=== PATIENT | male | born 1960 | race Caucasian/White ===

== ENCOUNTER 2017-12-23 12:04 | Emergency (ER) | payer OTHER ==
--- NOTE | 2017-12-23 12:27 | ED Physician Documentation ---
PD HPI ABD PAIN - Stated complaint Stated Complaint: SIDE PX - Chief complaint Chief Complaint: Abd Pain - History obtained from History obtained from: Patient - History of Present Illness Timing - onset: How many weeks ago (1) Timing - duration: Weeks (1) Timing - details: Abrupt onset, Still present, Waxing and waning Quality: Aching, Sharp, Pain Location: RLQ Radiation: Right flank Improved by: No: Eating, Vomiting Worsened by: No: Eating, Moving, Breathing, Position Associated symptoms: Nausea, Hematuria, Loss of appetite. No: Fever, Vomiting, Diarrhea, Dysuria, Chest pain Similar symptoms before: Diagnosis (remote kidney stone about 30 years ago. Now current one the past week.) Recently seen: Emergency Dept (a week ago, seen in ER with UA, labs, and US showing kidney stone. Given Rx for NSAID, Flomax, Zofran, and Percocet. Has had persistent pain since and worse again since last night.) Review of Systems Constitutional: denies: Fever, Chills Nose: denies: Rhinorrhea / runny nose, Congestion Throat: denies: Sore throat Cardiac: denies: Chest pain / pressure, Palpitations Respiratory: denies: Cough GI: reports: Abdominal Pain, Nausea. denies: Vomiting, Constipation, Diarrhea : reports: Hematuria. denies: Dysuria, Frequency Skin: denies: Rash, Lesions PD PAST MEDICAL HISTORY - Past Medical History Cardiovascular: None Respiratory: None Endocrine/Autoimmune: None GI: None : None HEENT: None Psych: None, Depression, Anxiety Musculoskeletal: Osteoarthritis Derm: None - Past Surgical History Ortho: ACL reconstruction - Present Medications Home Medications: Ambulatory Orders Medication Instructions Recorded Confirmed Bupropion HCl [Wellbutrin] 100 mg PO DAILY 04/21/16 12/23/17 Mirtazapine [Remeron] 30 mg PO DAILY 04/21/16 12/23/17 Aspirin [Aspir-Low] 81 mg ORAL DAILY 04/24/16 12/23/17 Dexamethasone [Decadron] 4 mg PO DAILY #5 tablet 12/23/17 Losartan [Cozaar] DAILY 12/23/17 Oxycodone HCl/Acetaminophen 1 each PO Q6H PRN #20 tablet 12/23/17 [Percocet 5-325 mg Tablet] - Allergies Allergies/Adverse Reactions: Allergies Allergy/AdvReac Type Severity Reaction Status Date / Time No Known Drug Allergies Allergy Verified 04/21/16 13:18 PD ED PE NORMAL - Vitals Vital signs reviewed: Yes - General General: Alert and oriented X 3, No acute distress, Well developed/nourished - HEENT HEENT: Moist mucous membranes, Pharynx benign - Neck Neck: Supple, no meningeal sign, No adenopathy - Cardiac Cardiac: RRR, No murmur - Respiratory Respiratory: Clear bilaterally - Abdomen Abdomen: Normal bowel sounds, Soft, Non distended, No organomegaly, Other (mild tenderness without guarding right lower. ) - Male Male : Other (no inguinal hernia nor tenderness; scrotum normal and testicle not unusually tender. ) - Rectal Rectal: Deferred - Back Back: No spinal TTP, Other (some right CVA tender. ) - Derm Derm: Normal color, Warm and dry, No rash - Neuro Neuro: Alert and oriented X 3, No motor deficit, Normal speech Results - Vitals Vitals: Vital Signs - 24 hr 12/23/17 12/23/17 12/23/17 12:09 14:03 14:31 Temperature 36.6 C Heart Rate 68 54 L 61 Respiratory 18 12 16 Rate Blood Pressure 149/85 H 146/90 H 140/98 H O2 Saturation 99 97 97 12/23/17 16:09 Temperature 36.6 C Heart Rate 70 Respiratory 14 Rate Blood Pressure 138/98 H O2 Saturation 100 Oxygen O2 Source Room air - Labs Labs: Laboratory Tests 12/23/17 12/23/17 12/23/17 12:40 12:40 12:40 WBC 7.0 RBC 4.16 L Hgb 13.5 L Hct 39.4 L MCV 94.6 H MCH 32.3 H MCHC 34.2 RDW 12.8 Plt Count 187 MPV 9.1 Neut # 4.8 Lymph # 1.1 L Whitley # 0.8 Eos # 0.3 Baso # 0.0 Absolute Nucleated RBC 0.00 Nucleated RBC % 0.0 Sodium 136 Potassium 4.1 Chloride 100 L Carbon Dioxide 28 Anion Gap 8.0 BUN 25 H Creatinine 1.7 H Estimated GFR (MDRD) 42 L Glucose 103 H Calcium 8.5 Total Bilirubin 0.8 AST 41 ALT 59 Alkaline Phosphatase 59 Total Protein 6.5 L Albumin 3.6 Globulin 2.9 Albumin/Globulin Ratio 1.2 Lipase 20 L Urine Color YELLOW Urine Clarity CLEAR Urine pH 6.5 Ur Specific Datto 1.020 Urine Protein NEGATIVE Urine Glucose (UA) NEGATIVE Urine Ketones NEGATIVE Urine Occult Blood MODERATE H Urine Nitrite NEGATIVE Urine Bilirubin NEGATIVE Urine Urobilinogen 1 (NORMAL) Ur Leukocyte Esterase NEGATIVE Urine RBC 6-10 H Urine WBC 0-3 Ur Squamous Epith Cells RARE Squamous Urine Bacteria None Seen Ur Microscopic Review INDICATED Urine Culture Comments NOT INDICATED - Rads (name of study) KUB CT Radiology: Prelim report reviewed (see Rad report), EMP read contemporaneously PD MEDICAL DECISION MAKING - ED course Complexity details: reviewed results (has 5-6 mm stone still at UVJ. He is going on trip for a week, starting in AM. Given Rx for meds. He had not been taking the Flomax regularly, so encouraged to do so and will add Decadron, to see if helps. ), re-evaluated patient (feeling much better with meds. Declined repeat dilaudid as pain went about away with first go of meds and lido. ), considered differential, d/w patient, other (Longer ED stay due to wait for imaging. ) Departure - Departure Disposition: 01 Home, Self Care Clinical Impression: Right sided abdominal pain, Ureterolithiasis Condition: Stable Record reviewed to determine appropriate education?: Yes Instructions: ED Stone Renal W Colic Follow-Up: Aki Smith MD [Primary Care Provider] - [facility] [Provider Group] Prescriptions: Dexamethasone [Decadron] 4 mg PO DAILY #5 tablet Oxycodone HCl/Acetaminophen [Percocet 5-325 mg Tablet] 1 each PO Q6H PRN #20 tablet PRN Reason: Pain Comments: Drink lots of fluids. Continue the Aleve as an anti-inflammatory 2-3 times a day. Continue the tamsulosin to reduce ureter spasming and try to promote passage. Add Decadron steroid anti-inflammatory to also help promote passage by reducing inflammation. Use Percocet if needed for pain. Follow-up with urology if still not improved over the next few days to week or so. You could call and make an appointment for your return from your trip Discharge Date/Time: 12/23/17 16:42
[2017-12-23 12:49] LABS: BILIRUBIN,URINE NEGATIVE (NEGATIVE); GLUCOSE, URINE (UA) NEGATIVE (NEGATIVE); KETONES,URINE (UA) NEGATIVE (NEGATIVE); LEUKOCYTE ESTERASE, URINE NEGATIVE (NEGATIVE); NITRITE,URINE NEGATIVE (NEGATIVE); OCCULT BLOOD,URINE MODERATE (NEGATIVE); PH,URINE 6.5 PH (5.0-7.5); PROTEIN,URINE NEGATIVE (NEGATIVE); UROBILINOGEN,URINE 1 (NORMAL) E.U./dL (NORMAL)
[2017-12-23 12:54] LABS: CLARITY,URINE CLEAR (CLEAR)
[2017-12-23] MEDS ORDERED: DEXAMETHASONE 10 MG/ML VIAL IVP STA (12:55)
[2017-12-23] MEDS ORDERED: HYDROmorphone 1 MG/ML SYRINGE IVP STA ×2 (12:55→13:43)
[2017-12-23] MEDS ORDERED: SODIUM CHLORIDE 0.9% 1,000 ML IV ONE (12:55)
[2017-12-23] MEDS ORDERED: KETOROLAC 30 MG/ML VIAL IVP STA (12:55)
[2017-12-23] MEDS ORDERED: ONDANSETRON 4 MG/2 ML VIAL IVP STA (12:55)
[2017-12-23 12:58] LABS: BASOPHILS % (AUTO) 0.7 %; EOSINOPHILS # (AUTO) 0.3 10^3/uL (0.0-0.7); EOSINOPHILS % (AUTO) 3.6 %; HGB - HEMOGLOBIN 13.5 g/dL (14.0-18.0); LYMPHOCYTES # (AUTO) 1.1 10^3/uL (1.5-3.5); LYMPHOCYTES % (AUTO) 15.4 %; MEAN CORPUSCULAR HEMOGLOBIN 32.3 pg (27.0-31.0); MEAN CORPUSCULAR HGB CONC 34.2 g/dL (32.0-36.0); MEAN CORPUSCULAR VOLUME 94.6 fL (80.0-94.0); MEAN PLATELET VOLUME 9.1 fL (7.4-11.4); MONOCYTES # (AUTO) 0.8 10^3/uL (0.0-1.0); MONOCYTES % (AUTO) 10.8 %; NEUTROPHILS # (AUTO) 4.8 10^3/uL (1.5-6.6); NEUTROPHILS % (AUTO) 69.5 %; PLT - PLATELET COUNT 187 10^3/uL (130-450); RED BLOOD COUNT 4.16 10^6/uL (4.70-6.10); RED CELL DISTRIBUTION WIDTH 12.8 % (12.0-15.0)
[2017-12-23 13:03] LABS: SQUAMOUS EPITHELIAL CELL,UR RARE Squamous (<= Few)
[2017-12-23 13:04] LABS: BACTERIA,URINE None Seen /HPF (None Seen)
[2017-12-23 13:08] LABS: ALBUMIN 3.6 g/dL (3.2-5.5); ALBUMIN/GLOBULIN RATIO 1.2 (1.0-2.2); BILIRUBIN,TOTAL 0.8 mg/dL (0.2-1.0); CALCIUM 8.5 mg/dL (8.5-10.3); CREATININE 1.7 mg/dL (0.6-1.2); TOTAL PROTEIN 6.5 g/dL (6.7-8.2)
[2017-12-23] MEDS ORDERED: LIDOCAINE-MPF 2% 7 ML in SODIUM CHLORIDE 0.9% 50 ML IV STA (13:42)
[2017-12-23] MEDS ORDERED: LIDOCAINE-MPF 2% 5 ML VIAL ONE (14:25)
--- NOTE | 2017-12-23 15:56 | CT Preliminary Report ---
Exam: CT KUB IMPRESSION: 1. Obstructing right UVJ 6.3 x 3.5 mm calculus with a probable slighty more proximal distal right ure teral 4.5 x 3.5 mm calculus in the distal right ureter. Moderate right hydronephrosis and right perin ephric edema. 2. Nonobstructing left renal calculi. 6.6 mm calculus present within the left renal pelvis. 3. Normal appendix. No bowel obstruction per no diverticulitis. 4. Partially exophytic low-attenuation 17 mm lesion arising from the posterior mid right kidney with a likely marginal calcification which has increased in size compared to 12/29/2010. Renal ultrasound follow-up recommended for further detail. [facility] SITE ID: [id number]
--- NOTE | 2017-12-23 16:03 | CT Report ---
EXAM: CT ABDOMEN AND PELVIS (CT KUB) EXAM DATE: 12/23/2017 03:39 PM. CLINICAL HISTORY: Right kidney stone. Flank pain. History of kidney stones. COMPARISONS: 12/29/2010. TECHNIQUE: Routine axial helical CT imaging was performed through the abdomen and pelvis without IV c ontrast. Reconstructions: Coronal and sagittal. In accordance with CT protocol optimization, one or more of the following dose reduction techniques w ere utilized for this exam: automated exposure control, adjustment of mA and/or KV based on patient s ize, or use of iterative reconstructive technique. FINDINGS: Lung Bases: Lung bases are clear. Included portions of the heart are unremarkable Right Kidney/Ureter: Right perinephric edema and moderate right hydronephrosis and right ureteral dil atation and right periureteral edema evident to the right UVJ where there is an obstructing 6.3 x 3.5 mm calculus. Slightly more proximally there appears to be another calculus measuring 4.5 x 3.5 mm wi thin the distal right ureter. Multiple calculi are seen, largely within the lower pole of the right k idney. Partly exophytic low attenuation lesion is seen arising from the mid posterior right kidney me asuring 17 mm which has increased in size with a possible marginal calcification. Left Kidney/Ureter: Multiple nonobstructing left renal calculi are seen in the left kidney. Within th e left renal pelvis is a nonobstructing 6.6 x 4.5 mm calculus. Mild left perinephric stranding. No ur eteral dilatation or ureteral calculi are identified. Other Solid Organs: Unenhanced images of the liver, spleen, adrenals and pancreas are unremarkable. Gallbladder/Bile Ducts: Unremarkable. Peritoneal Cavity: Stomach is only mildly distended and unremarkable. No small bowel obstruction. Diane endix is normal. Small to moderate volume of stool is seen in the colon. No diverticulitis. No enlarg ed retroperitoneal or mesenteric lymph nodes. Small fatty umbilical hernia. No free air. Pelvic Organs: Right UVJ calculus. No other bladder calculi. Prostate calcifications. No urethral hermilo culi are identified. No pelvic adenopathy. No pelvic free fluid. Vasculature: Unremarkable. Other: Degenerative changes of the lower thoracic and lower lumbar spine. Grade 1 anterolisthesis of L4-L5 due to L5 pars interarticularis defects. Lumbar facet arthropathy. Degenerative changes of both hip joints. IMPRESSION: 1. Obstructing right UVJ 6.3 x 3.5 mm calculus with a probable slighty more proximal distal right ure teral 4.5 x 3.5 mm calculus in the distal right ureter. Moderate right hydronephrosis and right perin ephric edema. 2. Nonobstructing left renal calculi. 6.6 mm calculus present within the left renal pelvis. 3. Normal appendix. No bowel obstruction. No diverticulitis. 4. Partly exophytic low-attenuation 17 mm lesion arising from the posterior mid right kidney with a l ikely marginal calcification which has increased in size compared to 12/29/2010. Renal ultrasound fol low-up recommended for further detail. [facility] Referring Provider Line: [phone] SITE ID: [id number]
[2017-12-23 16:10] VITALS: BP 138/98
== END 2017-12-23 16:42 | disposition home or self-care (01) ==
LOC: ED 12:04
DX: N20.1 Calculus of ureter (principal)
CPT/HCPCS: 36415; 74176; 80053; 81001; 83690; 85025; 96361; 96374; 96375; 99283; 99284; J1170; 81003; 87086

== ENCOUNTER 2019-06-12 08:58 | Outpatient (CLI) | payer OTHER ==
--- NOTE | 2019-06-12 11:21 | CT Report ---
Reason: FAMILY HX OF CORONARY HEART DISEASE Procedure Date: 06/12/2019 Accession Number: [id number] / [id number] Procedure: CT - Calcium Score CPT Code: 13501 FULL RESULT: EXAM: CALCIUM SCORE EXAM DATE: 06/12/2019 09:22 AM. HISTORY: FAMILY HISTORY OF CORONARY HEART DISEASE. COMPARISON: None. TECHNIQUE: Axial sections were obtained through the heart. In accordance with CT protocol optimization, one or more of the following dose reduction techniques were utilized for this exam: automated exposure control, adjustment of mA and/or KV based on patient size, or use of iterative reconstructive technique. FINDINGS: CALCIUM SCORE: The LMA equals 0. The LAD equals 0. The left circumflex equals 0. The RCA equals 0. The total calcium score is 0. LUNGS AND MEDIASTINUM: Heart size is normal. Trace pericardial effusion. Ascending aorta on the axial images measures 4 cm. Descending thoracic aorta on the axial images measures 2.9 cm. Mid main pulmonary artery measures 2.5 cm. No enlarged mediastinal or hilar lymph nodes are identified. No endobronchial obstruction. Bilateral lower lung, right middle lobe and lingular scar/atelectasis. Included portions of the upper abdomen are unremarkable. Mild degenerative changes of the visualized thoracic spine. IMPRESSION: Calcium score of 0. Mildly prominent ascending aorta measuring 4 cm. [facility]
== END 2019-06-12 08:59 | disposition home or self-care (01) ==
LOC: DI 08:58
PROVIDERS: ATTEND Family Medicine
DX: Z82.49 Family history of ischemic heart disease and other diseases of the circulatory system (principal)
CPT/HCPCS: 75571

== ENCOUNTER 2021-01-24 14:17 | Outpatient (CLI) | payer OTHER ==
[2021-01-30 22:26] VITALS: BP 170/117
--- NOTE | 2021-01-30 22:27 | SLEEP CARE CONSULTATION ---
Information from patient questionnaire entered by Ga Woods. I have reviewed and concur with the information entered by Ga Woods. This document represents the service I personally performed and the decisions made by me, Lorenzo Sultana MD, [facility]. History of Present Illness Service Date and Time: 01/24/2021 1417 Reason for Visit: New patient Chief Complaint: reports: Snoring, Observed pauses in breathing, Frequent awakenings at night Date of Onset: 5 + years Usual bedtime: 10:30 PM Time it takes to fall asleep: 30 min Snores at night: Yes Observed to quit breathing while asleep: Yes Sleeps alone due to snoring: No Number of times waking at night: 3 Reasons for waking at night: reports: Snoring Toss, Turn, or Twitch while sleeping: Yes (sometimes) Recalls having dreams: Yes Usually gets out of bed at: 6 AM Feels refreshed in the morning: Yes Morning headache: No Sleepy or fatigued during the day: No Ever fallen asleep while driving: No Takes day naps: No Dreams during day naps: No Prior sleep studies: No Additional HPI information: I had the pleasure of seeing Mr. Branch today regarding the possibility of him having a sleep disorder. As you know, he is a 60 year old gentleman who complains of loud snore, observed apneas, and frequent awakenings. The patient tells me that he normally goes to bed around 10:30 pm, and it takes him approximately 30 minutes to fall asleep. His can still sleep in the same bed. He can recall waking up on the average of 3 times during the night. Most of the time he wakes up because of his own snoring, but not choking, or having to gasp for air. There is a lot of tossing and turning in his sleep. No somniloquy (sleep talking) or somnambulism (sleep walking). Generally he can recall having dreams. In the morning he usually gets up out of the bed around 6 a.m. feeling refreshed and rested. He usually does not have a morning headache. During the day he does not feel sleepy or fatigued. His score on [place] Sleepiness Scale is 4 out of 24. He never has fallen asleep while driving nor has had any accident due to sleepiness. He usually does not take naps during the day. He denies having impaired concentration during the day. 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 Patient is and lives in [place]. Have you smoked in the past 12 months: No Alcohol use: Yes Alcohol amount and frequency: Glass of wine with dinner Caffeine use: Yes Caffeine amount and frequency: 1 cup of tea in morning Family History Family history of sleep disordered breathing: Yes (Brother - 58 years old) Allergies and Home Medications Drug allergies reviewed: Yes Home medication list reviewed: Yes Review of Systems Weight gain over past 5 years: 15 Cardiovascular: denies: high blood pressure, palpitations, chest pain, irregular heart rate or pulse, leg or foot swelling, have to sleep sitting up, other Respiratory: denies: shortness of breath, wheeze, sputum production, chronic cough, other Gastrointestinal: denies: heartburn, difficulty swallowing, nausea, vomitting, diarrhea, abdominal pain, other Urinary: denies: incontinence, frequency, urgency, impotence, other Psychiatric: reports: mood disorder (managed by medicine) Ear/Nose/Throat: reports: wisdom teeth removed Endocrine: denies: thyroid disease, history of goiter, sluggishness, too hot or cold, excessive thirst, increased appetite, increased urination, unexplained weakness, other Musculoskeletal: denies: joint pain, neck pain, back pain, joint swelling, muscle pain or cramping, mobility problems, other Physical Exam Vital signs obtained and entered by: Dr. Sultana Blood Pressure: 170/117 Cuff size: regular Heart Rate: 83 O2 Saturation: 95 Height: 6 ft Weight: 185 lb Body Mass Index: 25.0 BMI Classification: Overweight Neck circumference: 17.5 Mood/affect: normal HEENT: No craniofacial malformation Nostrils: patent to airflow Turbinates: normal Septum: midline Mouth and throat: narrow oropharynx Hard palate: normal Uvula: normal Uvula visualization: 50% Mallampati Class II Tongue: normal in size Tonsils: small Chin and jaw: normal size and position Impression and Plan IMPRESSION: 1. Obstructive Sleep Apnea-Hypopnea Syndrome, as suggested by history of loud and irregular snoring, observed cessation of breath while asleep, and frequent awakenings during the night. Narrow oropharynx and obesity are common predisposing factors for obstructive sleep apnea-hypopnea syndrome. Untreated obstructive sleep apnea can also cause hypertension. I will order a home sleep apnea test (HSAT). Plan: 1. Schedule a home sleep apnea test (HSAT). 2. Avoid long distance driving or when feeling sleepy. 3. Avoid alcohol, sedative and muscle relaxant around bedtime. 4. Attempt to lose weight. Visit Type: In Office Time Spent with Patient (minutes): 15 Provider Statement: I spent 100% of the Face to Face Visit with the patient with greater than 50% spent counseling the patient and coordination of care.
== END 2021-01-24 14:18 | disposition home or self-care (01) ==
LOC: SC 14:17
PROVIDERS: ATTEND Internal Medicine Pulmonary Disease
DX: R06.81 Apnea, not elsewhere classified (principal); G47.8 Other sleep disorders; R06.83 Snoring; E66.3 Overweight; Z68.25 Body mass index [BMI] 25.0-25.9, adult
CPT/HCPCS: 99202; 99212

== ENCOUNTER 2021-02-10 15:07 | Outpatient (CLI) | payer OTHER | END 2021-02-10 15:08 | disposition home or self-care (01) | LOC: SC 15:07 | PROVIDERS: ATTEND Internal Medicine Pulmonary Disease | DX: G47.33 Obstructive sleep apnea (adult) (pediatric) (principal) | CPT/HCPCS: 95806 ==

== ENCOUNTER 2021-02-16 16:08 | Outpatient (CLI) | payer OTHER ==
--- NOTE | 2021-02-16 16:45 | SLEEP CARE CONSULTATION ---
Information from patient questionnaire entered by Ga Woods. I have reviewed and concur with the information entered by Ga Woods. This document represents the service I personally performed and the decisions made by me, Luh Mccarty ARNP. History of Present Illness Service Date and Time: 02/16/2021 1608 Initial [place] Sleepiness Scale score: 4 (in 2020) Current [place] Sleepiness Scale score: 4 Additional HPI information: LINDA VIDAL returns for follow up and results of the recently performed home sleep study. I explained the pathophysiology behind obstructive sleep apnea. We then spent quite a bit of time discussing different treatment options. For mild obstructive sleep apnea, surgery and oral appliance are alternatives to nasal CPAP therapy but in moderate or severe cases, nasal CPAP is the most effective and reliable treatment. Because apnea is primarily in supine position, then positional management therapy could be effective. Methods discussed such as positioning with pillows, using a T-shirt with tennis balls in the back, and shown commercial products that have a pillow format on back to prevent supine sleep. I reviewed the impact of weight changes on sleep apnea and strongly recommended losing weight. After some discussion, the patient opted to go with the nasal CPAP therapy. Nasal autoCPAP set at 4-15 cmH20 will be ordered with rationale explained. A manual titration study will be ordered if unable to find optimal pressure with office adjustments. I explained how CPAP machine works with sample devices Resp[employer]ics Dreamstation and [employer] [id number] and what to expect when using the machine. Using CPAP every night in order to get used to it was emphasized. Patient advised to put CPAP mask on before getting into bed so as not to fall asleep without CPAP. To assist acclimation to CPAP use, it could also be used for a short time during day while reading or watching TV. The patient was instructed to call the CPAP supplier to discuss any mechanical problem that may occur. If the mask given is uncomfortable or is difficult to keep on through the night even with adjustment, contact the CPAP supplier as many will replace with another mask style if notified before 30 days. If snoring or perceives is not getting enough air or too much air from the machine, notify this office. [facility] patient education PAP tips reviewed and given to patient. Patient counseled not drink alcohol less than 4 hours before bedtime as it can increase snoring and apnea. Patient was cautioned about risks of drowsy driving until sleepiness symptoms resolve. Sleep Study - Results Type of Sleep Study: Home sleep study Prior sleep studies: No Polysomnography/Home Sleep Study results: Physician Impression: The quality of the study is good. The length of the study is adequate (> 240 minutes). Please also see the tabulated and graphic data. 1. Obstructive Sleep Apnea-Hypopnea (ICD-10 G47.33), mild, with an AHI of 14.9 /hr and akosua SaO2 of 80%. During the study, the patient had 90 apneas (86 obstructive, 3 central, 1 mixed) and 24 hypopneas. The longest episode lasted 110.0 seconds. The respiratory events occurred more frequently during supine sleep (supine AHI was 63.5 and non-supine, 10.79). 2. Hypoxemia (ICD-10 R09.02), mild, with the lowest oxygen saturation of 80 % and 14.7 minutes with SaO2 under 90%. Baseline oxygen saturation was normal (Average oxygen saturation was 93%). Allergies and Home Medications Home medication list reviewed: Yes (no new meds) Review of Systems Review of systems same as previous: Yes (no changes) Physical Exam Heart Rate: 88 O2 Saturation: 96 Height: 6 ft Weight: 226 lb Body Mass Index: 30.6 BMI Classification: Obese Impression and Plan 1. Obstructive Sleep Apnea-Hypopnea Syndrome, mild, with lowest oxygen saturation of 80%. Obviously this is the cause of the patients symptoms of unrefreshed sleep, and excessive daytime sleepiness. Positive pressure therapy could benefit hypertension and mood disorders. As mentioned above, the patient will be started on nasal autoCPAP therapy with pressure set at 4-15 cmH2O. A manual titration study will be completed if unable to find optimal treatment pressure with office adjustments. Compliance guidelines also reviewed. A copy of compliance guidelines will be given for reference at check out. Because the apnea is more severe supine, I instructed to avoid sleeping supine using pillow positioning until able to start CPAP use. * Nasal auto CPAP therapy, pressure at 4-15 cm H2O. * Attempt to lose weight. * Avoid alcohol consumption near bedtime. * Avoid supine sleep until using CPAP. * The patient is again cautioned about driving until sleepiness completely resolves. * Return one month after CPAP obtained. I will assess response to therapy and compliance at that time. Counseling Topics: Weight loss health impact Visit Type: In Office Time Spent with Patient (minutes): 23 Provider Statement: I spent 100% of the Face to Face Visit with the patient with greater than 50% spent counseling the patient and coordination of care.
== END 2021-02-16 16:09 | disposition home or self-care (01) ==
LOC: SC 16:08
PROVIDERS: ATTEND Nurse Practitioner Family
DX: G47.33 Obstructive sleep apnea (adult) (pediatric) (principal); E66.9 Obesity, unspecified; Z68.30 Body mass index [BMI] 30.0-30.9, adult
CPT/HCPCS: 99212; 99213

== ENCOUNTER 2021-06-28 11:39 | Outpatient (CLI) | payer OTHER ==
--- NOTE | 2021-06-28 12:02 | SLEEP CARE CONSULTATION ---
Information from patient questionnaire entered by Nola Laird. I have reviewed and concur with the information entered by Nola Laird. This document represents the service I personally performed and the decisions made by , Luh Mccarty ARNP. History of Present Illness Service Date and Time: 06/28/2021 1139 Previous diagnosis: Mild, Obstructive Sleep Apnea-Hypopnea Syndrome AHI: 14.9 (in 2020) Reason for follow up: first compliance Equipment type: CPAP Equipment obtained from: [employer] (got initial supplies, no issues) Mask style: Nasal Mask brand: Resmed (over the nose) Backup mask available: No (will keep old mask when replaced) Last cushion change: 1 month Prior sleep studies: Yes Year and Where: 2020 - [facility] Type of Sleep Study: Home sleep study HPI additional information: LINDA VIDAL was diagnosed to have mild, AHI 14.9, obstructive sleep apnea- hypopnea syndrome and returns via Telehealth audiovisual visit today for CPAP therapy first compliance follow-up. CPAP Compliance Data - Data Reviewed with Patient Average duration of nightly device use: 6 hr 29 min Compliance rate %: 70 (initial 30 days)(last 30 - 97%) Current pressure setting (cmH2O): 4-15 (median 8.8, avg 12.8, max 13.8) Humidity settin Average residual AHI: 6.1 (initial)(last 30 - 1.8) Central apnea: 1.1 Obstructive apnea: 1.9 Subjective Patient concerns: reports: condensation in mask/hose (one time when travelin). denies: aerophagia, mask discomfort, air blowing in eyes, mask leak noise, nasal congestion, dry mouth, nose, throat, epistaxis, other Observed to snore while using device: No Current pressure setting perceived as: comfortable On therapy, patient: reports: sleeping better, awakening more refreshed, being more awake and alert during the day, more rested overall. denies: drowsiness while driving Initial [place] Sleepiness Scale score: 4 (in 2020) Current [place] Sleepiness Scale score: 2 Allergies and Home Medications Home medication list reviewed: Yes (no changes) Review of Systems Review of systems same as previous: Yes (no changes) Physical Exam Vital signs obtained and entered by: Telehealth visit to reduce exposure during Covid pandemic Height: 6 ft Impression and Plan 1. Obstructive Sleep Apnea-Hypopnea Syndrome, mild, with fair treatment compliance and fair to good apnea control. On CPAP therapy, the patient has better sleep quality and is more rested overall. He feels the pressures used are comfortable. He has turned off the ramp feature on his device. The patients pressure will be changed to autoCPAP 9-14 cmH20. Patient advised to contact me if pressure change is uncomfortable so that it can be adjusted. Goals for apnea control discussed. Patient's apnea severity and rationale for treatment to reduce apnea, improve sleep quality and reduce cardiovascular and cerebrova scular events was reviewed. I also reviewed the benefit of consistent device use of CPAP for hypertension and mood disorders. Patient was encouraged to lose weight for their overall health and to reduce apneas. * Change auto CPAP pressure to 9-14 cmH2O * Notify me if snoring with mask or feeling that the pressure is too much or too little * Attempt to lose weight * Call this office if any problems using CPAP * Return for follow up in 1-2 months, or sooner if concerns arise Counseling Topics: Spare mask, Weight loss health impact Visit Type: In Office Patient Location: Home Location of Provider: Office Patient agrees and consents to this telehealth visit type: Yes Patient agrees to have their insurance billed: Yes Time Spent with Patient (minutes): 17 Provider Statement: I spent 100% of the Face to Face Visit with the patient with greater than 50% spent counseling the patient and coordination of care.
== END 2021-06-28 11:40 | disposition home or self-care (01) ==
LOC: SC 11:39
PROVIDERS: ATTEND Nurse Practitioner Family
DX: G47.33 Obstructive sleep apnea (adult) (pediatric) (principal)

== ENCOUNTER 2021-08-23 10:05 | Outpatient (CLI) | payer OTHER ==
--- NOTE | 2021-08-23 10:24 | SLEEP CARE CONSULTATION ---
Information from patient questionnaire entered by Valentine Crowell. I have reviewed and concur with the information entered by Valentine Crowell. This document represents the service I personally performed and the decisions made by , Luh Mccarty ARNP. History of Present Illness Service Date and Time: 08/23/2021 1005 Previous diagnosis: Mild, Obstructive Sleep Apnea-Hypopnea Syndrome AHI: 14.9 (in 2020) Reason for follow up: other (2 month) Equipment type: CPAP Equipment obtained from: [employer] (getting supplies, no issues) Mask style: Nasal Backup mask available: Yes (other mask) Last cushion change: couple days Prior sleep studies: Yes Year and Where: 2020 - [email or web address] Type of Sleep Study: Home sleep study HPI additional information: LINDA VIDAL was diagnosed to have mild, AHI 14.9, obstructive sleep apnea- hypopnea syndrome and returns via video telehealth visit today for CPAP therapy 2 months follow-up. Sleep Study - Results Type of Sleep Study: Home sleep study Prior sleep studies: Yes Year and Where: 2020 - [email or web address] CPAP Compliance Data - Data Reviewed with Patient Average duration of nightly device use: 7 hours 51 minutes Compliance rate %: 98 Current pressure setting (cmH2O): 9-14 Average residual AHI: 2 Central apnea: 1.5 Obstructive apnea: .1 Hypopnea: .3 Subjective Patient concerns: reports: condensation in mask/hose (occasionally). denies: aerophagia, mask discomfort, air blowing in eyes, mask leak noise, nasal congestion, dry mouth, nose, throat, epistaxis, other Observed to snore while using device: No Current pressure setting perceived as: comfortable On therapy, patient: reports: sleeping better, awakening more refreshed, being more awake and alert during the day, more rested overall. denies: drowsiness wh ile driving Initial [place] Sleepiness Scale score: 4 (in 2020) Current [place] Sleepiness Scale score: 3 Allergies and Home Medications Home medication list reviewed: Yes (no changes) Review of Systems Review of systems same as previous: Yes (no changes) Physical Exam Vital signs obtained and entered by: Telehealth visit to reduce exposure during covid pandemic Height: 6 ft Impression and Plan 1. Obstructive Sleep Apnea-Hypopnea Syndrome, mild, with good treatment compliance and good apnea control. On CPAP therapy, the patient has better sleep quality and is more rested overall. Patient is satisfied with current CPAP therapy. He has good improvement of his overall sleep apnea at current pressure. No pressure change needed today. Patient is very comfortable with h is CPAP and has no issues. He does get occasional condensation in the mask and I discussed with him adjusting his heated hose and/or humidity to reduce condensation. Patient would like to go out for a yearly visit at this point. Patient's apnea severity and rationale for treatment to reduce apnea, improve sleep quality and reduce cardiovascular and cerebrovascular events was reviewed. I also reviewed the benefit of consistent device use of CPAP for hypertension and mood disorders. * Continue auto CPAP pressure at 9-14 cmH2O * Notify me if snoring with mask or feeling that the pressure is too much or too little * Call this office if any problems using CPAP * Return for follow up in 1 year, or sooner if concerns arise Counseling Topics: Spare mask, Weight loss health impact Visit Type: Telehealth Video Video Type: ee Patient Location: Home Location of Provider: Office Patient agrees and consents to this telehealth visit type: Yes Patient agrees to have their insurance billed: Yes Time Spent with Patient (minutes): 18 Provider Statement: I spent 100% of the Telehealth Video Call with the patient with greater than 50% spent counseling the patient and coordination of care.
== END 2021-08-23 10:06 | disposition home or self-care (01) ==
LOC: SC 10:05
PROVIDERS: ATTEND Nurse Practitioner Family
DX: G47.33 Obstructive sleep apnea (adult) (pediatric) (principal)

== ENCOUNTER 2023-01-04 09:11 | Outpatient (CLI) | payer OTHER ==
[2023-01-04 09:54] VITALS: BP 148/96
--- NOTE | 2023-01-04 09:54 | SLEEP CARE CONSULTATION ---
Information from patient questionnaire entered by Ebonie Tuttle. I have reviewed and concur with the information entered by Ebonie Tuttle. This document represents the service I personally performed and the decisions made by me, Luh Mccarty ARNP. History of Present Illness Service Date and Time: 01/04/2023 09 Previous diagnosis: Mild, Obstructive Sleep Apnea-Hypopnea Syndrome AHI: 14.9 (in 2020) Reason for follow up: annual (LAST SEEN 07/2021) Equipment type: CPAP (Resmed Airsense 10 s/u 01/2021) Equipment obtained from: [employer] (getting supplies, no issues) Mask style: Nasal Mask brand: Resmed (Airfit N20) Backup mask available: No (will keep old mask when replaced) Last cushion change: 1 year ago Prior sleep studies: Yes Year and Where: 2020 - [facility] Type of Sleep Study: Home sleep study HPI additional information: LINDA VIDAL was diagnosed to have mild, AHI 14.9, obstructive sleep apnea- hypopnea syndrome and returned today for CPAP therapy annual follow-up. Sleep Study - Results Type of Sleep Study: Home sleep study Prior sleep studies: Yes Year and Where: 2020 - [facility] CPAP Compliance Data - Data Reviewed with Patient Average duration of nightly device use: 8 HRS 1 MIN Compliance rate %: 97 (07/07/22-01/02/23; 177/180 days used) Current pressure setting (cmH2O): 9-14 Average residual AHI: 0.8 Central apnea: 0.4 Obstructive apnea: 0.1 Subjective Patient concerns: reports: other (velcro on face mask doesn't keep mask on). denies: aerophagia, mask discomfort, air blowing in eyes, mask leak noise, condensation in mask/hose, nasal congestion, dry mouth, nose, throat, epistaxis Observed to snore while using device: No Current pressure setting perceived as: comfortable On therapy, patient: reports: sleeping better, awakening more refreshed, being more awake and alert during the day, more rested overall. denies: drowsiness while driving Initial [place] Sleepiness Scale score: 4 (in 2020) Current [place] Sleepiness Scale score: 3 (01/04/23) Allergies and Home Medications Known drug allergies: No Drug allergies reviewed: Yes Home medication list reviewed: Yes (no changes) Review of Systems Review of systems same as previous: Yes (no changes) Physical Exam Vital signs obtained and entered by: EBONIE Willis MA Blood Pressure: 148/96 (LEFT ARM) Cuff size: regular Heart Rate: 66 O2 Saturation: 96 Height: 6 ft Weight: 226 lb 3.2 oz Body Mass Index: 30.7 BMI Classification: Obese Impression and Plan 1. Obstructive Sleep Apnea-Hypopnea Syndrome, mild, with good treatment compliance and good apnea control. On CPAP therapy, the patient has better sleep quality and is more rested overall. Patient has not been getting regular supplies to change out his headgear and nasal cushion. He has had care so stretched out that it is hard to keep it on his head at night. He comes in mainly to get referral for more supplies to his DME. He is using a ResMed N20 but would like to try the [employer] DreamWisp because it has the hose connection at the top of the head. I will add this to his supply prescription. Patient has significant improvement of their sleep apnea and is satisfied with current CPAP therapy. Patient denies problems with oral dryness, nasal congestion, epistaxis, skin irritation or aerophagia. Patient's apnea severity and rationale for treatment to reduce apnea, improve sleep quality and reduce cardiovascular and cerebrovascular events was reviewed. I also reviewed the benefit of consistent device use of CPAP for hypertension and mood disorders. 2. Obesity, unspecified. Currently patients BMI is 30.7. Obesity increases the risk of apnea, CPAP pressure requirements and overall health risks especially cardiovascular and diabetes. Thus patient is advised to lose weight. * Continue auto CPAP pressure at 9-14 cmH2O * Patient to try a [employer] DreamWisp mask, size medium * Update supplies * Notify me if snoring with mask or feeling that the pressure is too much or too little * Attempt to lose weight * Call this office if any problems using CPAP * Return for follow up in 1 year, or sooner if concerns arise Counseling Topics: Spare mask, Weight loss health impact Visit Type: In Office Time Spent with Patient (minutes): 22 Provider Statement: I spent 100% of the Face to Face Visit with the patient with greater than 50% spent counseling the patient and coordination of care.
== END 2023-01-04 09:12 | disposition home or self-care (01) ==
LOC: SC 09:11
PROVIDERS: ATTEND Nurse Practitioner Family
DX: G47.33 Obstructive sleep apnea (adult) (pediatric) (principal); E66.9 Obesity, unspecified; Z68.30 Body mass index [BMI] 30.0-30.9, adult
CPT/HCPCS: 99212; 99213

== ENCOUNTER 2024-04-22 13:34 | Outpatient (CLI) | payer OTHER ==
--- NOTE | 2024-04-22 14:08 | Sleep Patient Instructions ---
Sleep Center Visit Summary - Patient Visit Information Reason for Visit: Annual follow-up - Patient Instructions Additional Instructions: You will continue with CPAP therapy with pressure set at 9-14 cmH2O. A supply prescription will be updated with your DME. Please follow up with the sleep care office in 1 year. - Clinic Information Contact: [facility] [address] [place] [id number] [email or web address] T: [phone]
--- NOTE | 2024-04-22 14:13 | SLEEP CARE CONSULTATION ---
Information from patient questionnaire entered by Ebonie Tuttle. I have reviewed and concur with the information entered by Ebonie Tuttle. This document represents the service I personally performed and the decisions made by me, Luh Mccarty ARNP. History of Present Illness Service Date and Time: 04/22/2024 1334 Previous diagnosis: Mild, Obstructive Sleep Apnea-Hypopnea Syndrome AHI: 14.9 (in 2020) Reason for follow up: annual (LAST SEEN 12/2022) Equipment type: CPAP (Resmed Airsense 10 s/u 01/2021) Equipment obtained from: [email or web address] (getting supplies, no issues) Mask style: Nasal (over the nose) Mask brand: Respironics (Dreamwisp) Backup mask available: Yes Last cushion change: couple months Prior sleep studies: Yes Year and Where: 2020 - [facility] Type of Sleep Study: Home sleep study HPI additional information: LINDA VIDAL was diagnosed to have mild, AHI 14.9, obstructive sleep apnea- hypopnea syndrome and returned today for CPAP therapy annual follow-up. Sleep Study - Results Type of Sleep Study: Home sleep study Prior sleep studies: Yes Year and Where: 2020 - [facility] CPAP Compliance Data - Data Reviewed with Patient Average duration of nightly device use: 7 HRS 50 MINS Compliance rate %: 100 (04/18/23-04/16/24; 365/365 days used) Current pressure setting (cmH2O): 9-14 Average residual AHI: 0.6 Central apnea: 0.4 Obstructive apnea: 0 Average large leak: 11 L/min Subjective Patient concerns: denies: aerophagia, mask discomfort, air blowing in eyes, mask leak noise, condensation in mask/hose, nasal congestion, dry mouth, nose, throat, epistaxis Observed to snore while using device: No Current pressure setting perceived as: comfortable On therapy, patient: reports: sleeping better, awakening more refreshed, being more awake and alert during the day, more rested overall. denies: drowsiness while driving Initial [place] Sleepiness Scale score: 4 (in 2020) Current [place] Sleepiness Scale score: 5 Allergies and Home Medications Known drug allergies: No Drug allergies reviewed: Yes Home medication list reviewed: Yes (no changes) Allergy and home medication list: Allergies No Known Drug Allergies Allergy (Verified 03/19/24 11:43) Review of Systems Review of systems same as previous: Yes (no changes) Physical Exam Vital signs obtained and entered by: [facility] ROCHA Blood Pressure: 132/85 (left arm) Cuff size: regular Heart Rate: 70 O2 Saturation: 95 Height: 6 ft Weight: 233 lb 6.4 oz Body Mass Index: 31.6 BMI Classification: Obese Impression and Plan 1. Obstructive Sleep Apnea-Hypopnea Syndrome, mild, with good treatment compliance and good apnea control. On CPAP therapy, the patient has better sleep quality and is more rested overall. Patient has significant improvement of their sleep apnea and is satisfied with current CPAP therapy. Patient denies problems with oral dryness, nasal congestion, epistaxis, skin irritation or aerophagia. Patient's apnea severity and rationale for treatment to reduce apnea, improve sleep quality and reduce cardiovascular and cerebrovascular events was reviewed. I also reviewed the benefit of consistent device use of CPAP for hypertension and mood disorder. 2. Obesity, unspecified. Currently patients BMI is 31.6. Obesity increases the risk of apnea, CPAP pressure requirements and overall health risks especially cardiovascular and diabetes. Thus patient is advised to lose weight. * Continue auto CPAP pressure at 9-14 cmH2O * Update supply prescription * Notify me if snoring with mask or feeling that the pressure is too much or too little * Attempt to lose weight * Call this office if any problems using CPAP * Return for follow up in 12 months, or sooner if concerns arise Counseling Topics: Spare mask, Weight loss health impact Prescriptions: Device supplies Follow up with Sleep Care in: 1 year Visit Type: In Office Time Spent with Patient (minutes): 21 Provider Statement: I spent 100% of the Face to Face Visit with the patient with greater than 50% spent counseling the patient and coordination of care.
[2024-04-22 14:28] VITALS: BP 132/85; O2SAT 95
== END 2024-04-22 13:35 | disposition home or self-care (01) ==
LOC: SC 13:34
PROVIDERS: ATTEND Nurse Practitioner Family
DX: G47.33 Obstructive sleep apnea (adult) (pediatric) (principal); E66.9 Obesity, unspecified; Z68.31 Body mass index [BMI] 31.0-31.9, adult
CPT/HCPCS: 99212; 99213